=== PATIENT | female | born 2000 | race Two or more races ===

== ENCOUNTER 2022-01-28 04:00 | Emergency (ER) | payer MEDICAID ==
[~2022-01-28] VITALS: Ht 165.1 cm; Wt 61.4 kg
[2022-01-28] MEDS ORDERED: SODIUM CHLORIDE 0.9% 1,000 ML IV ONE ×2 (05:00)
[2022-01-28 06:59] VITALS: BP 112/69
== END 2022-01-28 08:22 | disposition home or self-care (01) ==
LOC: EMS 04:02
DX: F10.129 Alcohol abuse with intoxication, unspecified (principal); Z79.899 Other long term (current) drug therapy; Y90.7 Blood alcohol level of 200-239 mg/100 ml
CPT/HCPCS: 99283; 96360; 36415; G0480; J7030; 96361